=== PATIENT | female | born 1970 | race African-American/Black ===

== ENCOUNTER 2017-05-07 18:46 | Emergency (ER) | payer MEDICAID ==
[~2017-05-07] VITALS: Ht 165.1 cm; Wt 69.9 kg
[2017-05-07 19:21] VITALS: BP 116/77
[2017-05-07] MEDS ORDERED: Norco 5mg/325mg tab ORAL ONE (20:45)
[2017-05-07] MEDS ORDERED: IBUPROFEN600 MG ORAL (20:48)
[2017-05-07] MEDS ORDERED: TRAMADOL HCL50 MG ORAL (20:48)
[2017-05-07] MEDS ORDERED: ZITHROMAX250 MG ORAL (21:03)
[2017-05-07] MEDS ORDERED: PROMETHAZI6.25 MG/1 ORAL (21:03)
[2017-05-07 21:05] VITALS: BP 121/70
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
--- NOTE | 2017-05-08 10:33 | Diagnostic Imaging Report ---
Indication: PAIN Technique: 3 views right foot Comparison: none Findings: There is hallux valgus and metatarsus adductus. There is mild hammertoe deformity of the third and fourth digits. No acute fractures. No dislocations. The joint spaces are preserved Impression: No acute bony trauma
== END 2017-05-07 21:57 | disposition home or self-care (01) ==
LOC: EMR 21:02
DX: H66.93 Otitis media, unspecified, bilateral (principal); S90.31XA Contusion of right foot, initial encounter; W21.89XA Striking against or struck by other sports equipment, initial encounter; Y92.89 Other specified places as the place of occurrence of the external cause; Z88.0 Allergy status to penicillin
CPT/HCPCS: 99284

== ENCOUNTER 2017-05-12 17:36 | Emergency (ER) | payer MEDICAID ==
[~2017-05-12] VITALS: Ht 165.1 cm; Wt 69.9 kg
[~2017-05-12 17:36] MED LIST: IBUPROFEN600 MG ORAL; PROMETHAZI6.25 MG/1 ORAL; TRAMADOL HCL50 MG ORAL; ZITHROMAX250 MG ORAL
[2017-05-12] MEDS ORDERED: TRAMADOL HCL50 MG ORAL (18:08)
[2017-05-12] MEDS ORDERED: ZITHROMAX250 MG ORAL (18:08)
[2017-05-12 18:15] VITALS: BP 128/70
[2017-05-12] MEDS ORDERED: traMADol 50mg tab ORAL ONE (18:15)
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
== END 2017-05-12 18:15 | disposition home or self-care (01) ==
LOC: EMR 18:07
DX: H66.90 Otitis media, unspecified, unspecified ear (principal); S99.921D Unspecified injury of right foot, subsequent encounter; V09.9XXD Pedestrian injured in unspecified transport accident, subsequent encounter; Z88.0 Allergy status to penicillin
CPT/HCPCS: 99284